=== PATIENT | female | born 1990 | race Two or more races ===

== ENCOUNTER 2022-01-02 08:17 | Outpatient (CLI) | payer OTHER ==
[~2022-01-02 08:17] MED LIST: CLARITIN10 MG PO; PRENATE ELITE1 EAC2 PO; SYNTHROID150 MCG PO; SYNTHROID300 MCG PO
== END 2022-01-02 09:15 | disposition home or self-care (01) ==
LOC: PRENATAL 08:17
PROVIDERS: ATTEND Obstetrics & Gynecology Maternal & Fetal Medicine
DX: O35.0XX0 Maternal care for (suspected) central nervous system malformation in fetus, not applicable or unspecified (principal); O35.3XX0 Maternal care for (suspected) damage to fetus from viral disease in mother, not applicable or unspecified; O34.219 Maternal care for unspecified type scar from previous cesarean delivery; Z3A.20 20 weeks gestation of pregnancy

== ENCOUNTER 2022-03-01 14:54 | Outpatient (CLI) | payer OTHER | END 2022-03-01 16:25 | disposition home or self-care (01) | LOC: PRENATAL 14:54 | PROVIDERS: ATTEND Obstetrics & Gynecology Maternal & Fetal Medicine | DX: O26.849 Uterine size-date discrepancy, unspecified trimester (principal); O34.219 Maternal care for unspecified type scar from previous cesarean delivery; Z3A.28 28 weeks gestation of pregnancy; O99.280 Endocrine, nutritional and metabolic diseases complicating pregnancy, unspecified trimester ==

== ENCOUNTER → 2022-03-20 | Outpatient (CLI) | payer OTHER | END | disposition home or self-care (01) | LOC: PRENATAL 13:32 | PROVIDERS: ATTEND Obstetrics & Gynecology Maternal & Fetal Medicine | DX: O99.283 Endocrine, nutritional and metabolic diseases complicating pregnancy, third trimester (principal); Z3A.31 31 weeks gestation of pregnancy ==

== ENCOUNTER 2022-03-23 11:44 | Outpatient (CLI) | payer OTHER | END 2022-03-23 12:45 | disposition home or self-care (01) | LOC: PRENATAL 11:44 | PROVIDERS: ATTEND Obstetrics & Gynecology Maternal & Fetal Medicine | DX: Z03.79 Encounter for other suspected maternal and fetal conditions ruled out (principal) ==

== ENCOUNTER 2022-04-26 15:10 | Outpatient (CLI) | payer OTHER | END 2022-04-26 16:15 | disposition home or self-care (01) | LOC: PRENATAL 15:10 | PROVIDERS: ATTEND Obstetrics & Gynecology Maternal & Fetal Medicine | DX: O26.849 Uterine size-date discrepancy, unspecified trimester (principal); O36.8199 Decreased fetal movements, unspecified trimester, other fetus; O34.219 Maternal care for unspecified type scar from previous cesarean delivery; O99.281 Endocrine, nutritional and metabolic diseases complicating pregnancy, first trimester; Z3A.36 36 weeks gestation of pregnancy ==

== ENCOUNTER 2022-05-14 11:15 | Inpatient (IN) | payer OTHER ==
[~2022-05-14] VITALS: Ht 157.5 cm; Wt 2.7 kg
== END 2022-05-19 12:20 | disposition home or self-care (01) | DRG 785 ==
LOC: O/R 05-16 05:40 → OB/GYN 05-16 11:15
PROVIDERS: ADMIT Obstetrics & Gynecology; ATTEND Obstetrics & Gynecology
PROC: 0UB70ZZ Excision of Bilateral Fallopian Tubes, Open Approach (ICD-10-PCS; 2022-05-16)
PROC: 4A1HXCZ Monitoring of Products of Conception, Cardiac Rate, External Approach (ICD-10-PCS; 2022-05-16)
PROC: 10D00Z1 Extraction of Products of Conception, Low, Open Approach (ICD-10-PCS; principal; 2022-05-16 12:00)
DX: O34.211 Maternal care for low transverse scar from previous cesarean delivery (principal); Z3A.39 39 weeks gestation of pregnancy; Z37.0 Single live birth; Z20.822 Contact with and (suspected) exposure to COVID-19; Z30.2 Encounter for sterilization

== ENCOUNTER 2022-05-24 02:38 | Emergency (ER) | payer OTHER ==
[~2022-05-24] VITALS: Ht 167.6 cm; Wt 88.5 kg
[2022-05-24] MEDS ORDERED: CEPHALEXIN500 MG PO (05:53)
== END 2022-05-24 06:01 ==
LOC: ER 02:38
DX: N93.9 Abnormal uterine and vaginal bleeding, unspecified (principal); N39.0 Urinary tract infection, site not specified; Z91.040 Latex allergy status

== ENCOUNTER 2023-12-09 22:32 | Emergency (ER) | payer OTHER ==
[~2023-12-09] VITALS: Ht 157.5 cm; Wt 93.0 kg
[~2023-12-09 22:32] MED LIST changes: +CEPHALEXIN500 MG PO
[2023-12-10 06:22] LABS: HEMATOCRIT 40.7 % (36.0-45.00); HEMOGLOBIN 13.8 g/dL (12.0-15.00); MEAN CELL VOLUME 86.3 fL (80.00-100.00); MEAN CORPUSCULAR HEMOGLOBIN 29.2 pg (27.00-32.0); MEAN CORPUSCULAR HGB CONC 33.8 g/dl (32.0-36.0); PLATELET COUNT 292 K/uL (150-450); RED BLOOD COUNT 4.71 M/uL (4.00-6.00); RED CELL DISTRIBUTION WIDTH 13.8 % (11.5-14.5)
[2023-12-10 06:52] LABS: ALBUMIN 3.8 gm/dL (3.4-5.0); BILIRUBIN TOTAL 0.35 mg/dL (0.3-1.2); CALCIUM 9.5 mg/dL (8.5-10.1); CREATININE SERUM 0.81 mg/dL (0.55-1.02); GFR 81.43; GLOBULINA 4.8 G/DL (2.4-3.5); POTASSIUM 3.33 mEq/L (3.5-5.1); TOTAL PROTEIN 8.6 gm/dL (6.4-8.2)
== END 2023-12-10 07:18 | disposition home or self-care (01) ==
LOC: ER 22:33
DX: N93.9 Abnormal uterine and vaginal bleeding, unspecified (principal); Z91.040 Latex allergy status

== ENCOUNTER 2023-12-12 19:23 | Emergency (ER) | payer OTHER ==
[~2023-12-12] VITALS: Ht 157.5 cm; Wt 92.5 kg
[2023-12-12 23:13] LABS: HEMOGLOBIN 13.8 g/dL (12.0-15.00); MEAN CELL VOLUME 87.2 fL (80.00-100.00); MEAN CORPUSCULAR HEMOGLOBIN 29.4 pg (27.00-32.0); MEAN CORPUSCULAR HGB CONC 33.7 g/dl (32.0-36.0); PLATELET COUNT 306 K/uL (150-450); RED CELL DISTRIBUTION WIDTH 13.6 % (11.5-14.5)
[2023-12-12 23:17] LABS: PH,URINE 6.5 (5.0-8.0); URINE APPEARANCE Clear; URINE BILIRRUBIN Negative (NEGATIVE); URINE BLOOD Large; URINE COLOR Orange; URINE LEUKOCYTE Negative; URINE NITRATE Negative
[2023-12-12 23:21] LABS: URINE BACTERIA 626.1 uL (0.0-1933); URINE EPITHELIAL CELLS 7.2 uL (0.0-38.8); URINE RBC 3061.4 uL (0.0-20.8); URINE WBC 41.1 uL (0.0-23.2)
[2023-12-12 23:28] LABS: URINE GLUCOSE >=1000 MG/DL (NEGATIVE); URINE PROTEIN 100 (NEGATIVE)
[2023-12-12 23:38] LABS: CALCIUM 9.3 mg/dL (8.5-10.1); CREATININE SERUM 0.97 mg/dL (0.55-1.02); GFR 66.14; POTASSIUM 4.09 mEq/L (3.5-5.1)
== END 2023-12-13 02:41 | disposition home or self-care (01) ==
LOC: ER 19:23
PROVIDERS: Emergency Medicine
DX: N83.209 Unspecified ovarian cyst, unspecified side (principal); N93.9 Abnormal uterine and vaginal bleeding, unspecified; E05.80 Other thyrotoxicosis without thyrotoxic crisis or storm; Z91.040 Latex allergy status

== ENCOUNTER 2025-04-03 09:54 | Emergency (ER) | payer OTHER ==
[~2025-04-03] VITALS: Ht 157.5 cm; Wt 85.3 kg
[2025-04-03] MEDS ORDERED: AUGMENTIN125 MG/5 M PO (10:29)
[2025-04-03] MEDS ORDERED: DEXAMETHASONE SODIUM PHOSPHATE 4 MG/ML VIAL IM ONE (12:45)
== END 2025-04-03 14:40 ==
LOC: ER 09:54
DX: H66.91 Otitis media, unspecified, right ear (principal); E03.8 Other specified hypothyroidism; Z91.040 Latex allergy status